=== PATIENT | female | born 1935 | race Caucasian/White ===

== ENCOUNTER 2021-02-18 00:49 | Emergency (ER) | payer MEDICARE, BC ==
[~2021-02-18] VITALS: Ht 165.1 cm; Wt 54.4 kg
[2021-02-18] MEDS ORDERED: MEGE400O5 PO (01:02)
[2021-02-18] MEDS ORDERED: QUET25TA PO (01:02)
[2021-02-18] MEDS ORDERED: QUET50TA PO (01:02)
[2021-02-18] MEDS ORDERED: ERGO500040 PO (01:02)
[2021-02-18] MEDS ORDERED: MELA3TAB41 PO (01:02)
[2021-02-18 02:38] LABS: HEMATOCRIT 35.8 % (31.2-41.9); MEAN CORPUSCULAR HEMOGLOBIN 33.2 uug (24.7-32.8); MEAN CORPUSCULAR VOLUME 99.8 fL (75.5-95.3); PLATELET COUNT (AUTO) 245 K/uL (179-408)
[2021-02-18 02:43] LABS: POTASSIUM 4.3 mmol/L (3.5-5.1)
[2021-02-18 02:56] LABS: BILIRUBIN,DIRECT 0.2 mg/dL (0.0-0.2); BILIRUBIN,TOTAL 0.6 mg/dL (0.2-1.0); TOTAL PROTEIN, SERUM 7.3 g/dL (6.4-8.2)
--- NOTE | 2021-02-18 07:30 | NUR ---
Received lg barbosa shift report
--- NOTE | 2021-02-18 07:45 | NUR ---
Patient discharged to home in stable condition. Patient wheeled via wheelchair. Written and verbal after care instructions given. Patient verbalizes understanding of instructions. Stressed follow up or return to ER for worsening s/s.
[2021-02-18 08:07] VITALS: BP 140/92
== END 2021-02-18 07:45 ==
LOC: ER 00:52
DX: S20.219A Contusion of unspecified front wall of thorax, initial encounter (principal); W05.0XXA Fall from non-moving wheelchair, initial encounter; Y92.099 Unspecified place in other non-institutional residence as the place of occurrence of the external cause; F03.90 Unspecified dementia, unspecified severity, without behavioral disturbance, psychotic disturbance, mood disturbance, and anxiety; R94.31 Abnormal electrocardiogram [ECG] [EKG]
CPT/HCPCS: 36415; 70030-TC; 71045; 71120; 85025; 93005; A4663

== ENCOUNTER 2021-08-12 18:48 | Inpatient (IN) | payer MEDICARE, BC ==
[~2021-08-12] VITALS: Ht 167.6 cm; Wt 58.5 kg
[~2021-08-12 18:48] MED LIST: ERGO500040 PO; MEGE400O5 PO; MELA3TAB41 PO; QUET25TA PO; QUET50TA PO
--- NOTE | 2021-08-12 19:11 | NUR ---
Dr. Darby at bedside for MSE.
[2021-08-12] MEDS ORDERED: ONDANSETRON ODT 4 MG TAB.RAPDIS SL ONE (19:15)
[2021-08-12] MEDS ORDERED: IBUPROFEN 400 MG TABLET PO ONE (19:15)
[2021-08-12] MEDS ORDERED: OXYCODONE/APAP 5-325 MG TABLET PO ONE (19:15)
[2021-08-12] MEDS ORDERED: ONDANSETRON ODT 4 MG TAB.RAPDIS ONE (19:26)
[2021-08-12] MEDS ORDERED: IBUPROFEN 400 MG TABLET ONE (19:27)
[2021-08-12] MEDS ORDERED: OXYCODONE/APAP 5-325 MG TABLET ONE (19:27)
--- NOTE | 2021-08-12 19:58 | NUR ---
Called to maru patient's primary physician, Sabas Grajeda, , spoke with grinding machine operator automatic, to maru funk.
--- NOTE | 2021-08-12 20:30 | NUR ---
applied xerform and kerlix gauze to left elbow skin tear.
[2021-08-12] MEDS ORDERED: FLUT16SP16 BNOSTRILS (20:33)
[2021-08-12] MEDS ORDERED: QUET50TA PO (20:33)
[2021-08-12] MEDS ORDERED: NUTR113P PO (20:33)
--- NOTE | 2021-08-12 21:12 | NUR ---
call to [facility] salesperson meats for panel for admission.
[2021-08-12] MEDS ORDERED: ONDANSETRON 4 MG/2 ML VIAL IV PRN (21:30)
[2021-08-12] MEDS ORDERED: REMEDY ESSENTIAL ZINC PASTE 113 GM TP PRN (21:30)
[2021-08-12] MEDS ORDERED: HYDROCODONE/APAP 10-325 MG TABLET PO ONE (21:30)
[2021-08-12] MEDS ORDERED: MAGNESIUM HYDROXIDE 30 ML LIQUID UDC PO PRN (21:30)
[2021-08-12] MEDS ORDERED: ACETAMINOPHEN 325 MG TABLET PO PRN (21:30)
--- NOTE | 2021-08-12 21:31 | NUR ---
Karuna Webber PRINTING MACHINE MECHANIC called back for admission orders.
[2021-08-12 21:45] LABS: HEMATOCRIT 30.5 % (31.2-41.9); MEAN CORPUSCULAR HEMOGLOBIN 32.4 uug (24.7-32.8); MEAN CORPUSCULAR VOLUME 95.7 fL (75.5-95.3); PLATELET COUNT (AUTO) 224 K/uL (179-408)
[2021-08-12 21:46] LABS: CREATININE 0.9 mg/dL (0.6-1.3); POTASSIUM 3.9 mmol/L (3.5-5.1)
[2021-08-12 21:52] LABS: BILIRUBIN,TOTAL 0.5 mg/dL (0.2-1.0); TOTAL PROTEIN, SERUM 6.5 g/dL (6.4-8.2)
--- NOTE | 2021-08-12 22:02 | NUR ---
pt taken for cat scan of head without contrast.
--- NOTE | 2021-08-12 22:07 | NUR ---
report given to Mattie ALVARADO pt to go to room 306.
--- NOTE | 2021-08-12 22:26 | NUR ---
pt returned from cat scan, unable to do as pt will not sit still. Dr. Darby called Karuna Webber for new orders.
--- NOTE | 2021-08-12 22:28 | NUR ---
norco 10-325 not given as ER ordered dilaudid ivp.
[2021-08-12] MEDS ORDERED: HYDROMORPHONE 1 MG/1 ML DISP.SYRIN IV ONE (22:30)
[2021-08-12] MEDS ORDERED: HALOPERIDOL LACTATE 5 MG/1 ML VIAL IM ONE (22:30)
[2021-08-12] MEDS ORDERED: HYDROMORPHONE 1 MG/1 ML DISP.SYRIN ONE (22:39)
[2021-08-12] MEDS ORDERED: HALOPERIDOL LACTATE 5 MG/1 ML VIAL ONE (22:39)
--- NOTE | 2021-08-12 23:22 | NUR ---
CT HEAD W/O CONTRAST TO BE DONE BY 7AM, PER DR TELLO TO [facility], TO [facility].
--- NOTE | 2021-08-12 23:31 | NUR ---
pt transfered to room 306 via [facility] with all belongings, JENNY Phelps at bedside to receive pt.
[2021-08-12 23:49] VITALS: BP 157/53
[2021-08-13] MEDS: IV NS 1000 ML 1,000 ML IV PRN ×2 (00:07→14:29)
[2021-08-13] MEDS ORDERED: CEFTRIAXONE 1 G VIAL ONE (00:49)
[2021-08-13] MEDS: CEFTRIAXONE 1 G in IV DEXTROSE 5% 50 ML IV SCH ×2 (01:04→20:52)
[2021-08-13 04:06] VITALS: BP 157/59
--- NOTE | 2021-08-13 05:00 | NUR ---
Pt arrived to unit at 2315 via gurney for s/p fall and L humerus fx. Alert and oriented to name. Needs to be reoriented at times. On room air saturating at 96-97%. IV in R forearm running NS at 75 mls. Requested midline. Rocephin abx given. Swallow eval in. Aspiration precautions. Urine sample collected. Orthopedic consult in. Call lights within reach. Safety measures maintained. Will endorse to am shift.
[2021-08-13 07:08] LABS: HEMATOCRIT 27.9 % (31.2-41.9); MEAN CORPUSCULAR HEMOGLOBIN 33.4 uug (24.7-32.8); MEAN CORPUSCULAR VOLUME 95.8 fL (75.5-95.3); PLATELET COUNT (AUTO) 180 K/uL (179-408)
[2021-08-13 07:23] LABS: CREATININE 0.8 mg/dL (0.6-1.3); MAGNESIUM 2.1 mg/dL (1.8-2.4); POTASSIUM 4.4 mmol/L (3.5-5.1)
--- NOTE | 2021-08-13 07:30 | NUR ---
RECEIVED PATIENT IN BED AWAKE BUT IS CONFUSED AND DISORIENTED ALL NEEDS ANTICIPATED AND SATISFIED ON ROOM AIR WITH NO SHORTNESS OF BREATH AT THIS [id number] ARM IS ON THE SLING WITH ADEQUATE CIRCULATION AT THIS TIME INCONTINENT CARE DONE IVF IN PROGRESS ORDERED BED ALARM IS IN USE MADE COMFORTABLE WILL CONTINUE TO OBSERVE.
--- NOTE | 2021-08-13 08:30 | NUR ---
SEEN BY TASSEL MAKING MACHINE OPERATOR DR PAYNE AND HE STATED THAT PATIENT WILL NEED AN ECHO BECAUSE HE HAS HEART MURMUR THE ECHO WILL NEED TO BE READ BEFORE SHE GOES FOR SURGERY ASSUMING SHE NEEDS TO HAVE SURGERY AND NOTED.
[2021-08-13] MEDS ORDERED: ERGOCALCIFEROL 50,000 UNIT CAPSULE PO SCH (09:00)
[2021-08-13] MEDS: ENSURE ENLIVE (VAN) 240 ML LIQUID PO SCH ×3 (09:00→17:00)
[2021-08-13] MEDS: MEGESTROL ACETATE 400 MG/10 ML LIQUID UDC PO SCH (09:02)
[2021-08-13] MEDS: FLUTICASONE PROP NASAL SPRAY 16 GM BOTTLE NS SCH (09:02)
[2021-08-13 09:07] LABS: *BILIRUBIN,URIN NEGATIVE (NEGATIVE); *CLARITY,URINE CLEAR (CLEAR); *COLOR,URINE YELLOW (YELLOW); *KETONES,URINE NEGATIVE (NEGATIVE); LEUKOCYTE ESTERASE ,URINE NEGATIVE (NEGATIVE); NITRITE, URINE NEGATIVE (NEGATIVE); UGLUCOSE NEGATIVE (NEGATIVE)
[2021-08-13 09:08] LABS: *BLOOD, URINE TRACE (NEGATIVE)
--- NOTE | 2021-08-13 09:08 | NUR ---
PATIENT IS CONFUSED DISORIENTED ST EVALUATION HERE TO SEE PATIENT SHE IS NOT COOPERATIVE REFUSED TO EAT REFUSED HER ENSURE NEEDING CONSTANT REDIRECTION FOR SAFETY WILL OBSERVE.
--- NOTE | 2021-08-13 11:25 | NUR ---
DR BLOCK HERE SEEN PATIENT WITH NO NEW ORDERS AT THIS TIME
[2021-08-13 11:52] LABS: BACTERIA,URINE NONE SEEN /HPF (NONE SEEN); SQUAMOUS EPITHELIAL CELL,UR FEW /HPF (NONE SEEN); WBC,URINE 0-3 /HPF (0-3)
[2021-08-13 12:27] VITALS: BP 104/45
--- NOTE | 2021-08-13 13:07 | NUR ---
ECHO COMPLETED ORDERED WITH 60 PERCENT EF WITH MODERATE TO SEVERE STENOSIS PATIENT REMAINS CONFUSED NEEDING FREQUENT REDIRECTION LEFT ARM SLING REPOSITIONED MADE COMFORTABLE WILL CONTINUE TO OBSERVE.
--- NOTE | 2021-08-13 15:00 | NUR ---
PATIENT IS VERY AGITATED VERY CONFUSSED DISORIENTED GETTING OUT OF BED UNATTENDED AT RISK FOR FALL HAS POOR SAFETY AWARENESS PATIENT PLACED ON THE KHOI/CHAIR MADE COMFORTABLE.
[2021-08-13 16:23] VITALS: BP 168/73
[2021-08-13] MEDS: MELATONIN 3 MG TABLET PO SCH (17:43)
--- NOTE | 2021-08-13 18:00 | NUR ---
REMAIN CONFUSED WITH IVF ORDERED MADE COMFORTABLE APPETITE REMAINS POOR.
[2021-08-13 20:00] VITALS: BP 165/83
[2021-08-13] MEDS: HYDROCODONE/APAP 10-325 MG TABLET PO PRN (21:14)
--- NOTE | 2021-08-13 22:05 | NUR ---
Patient awake, response to name, with facial grimacy, when ask if she has pain, she answer yes, Patient given pain meds po for pain and discomfort, noted with elevated BP probably due pain, Patient has left arm sling in place as ordered, cont to monitor.
[2021-08-14] MEDS: HYDROCODONE/APAP 10-325 MG TABLET PO PRN ×3 (03:04→21:45)
--- NOTE | 2021-08-14 03:04 | NUR ---
Patient awake with confusion, with facial grimacy and complaining of pain, given Narco po as ordered, Patient kept clean and dry, frequent visual check done. Patient has episode of removing sling, remove ice pack provided for left should swelling, closely monitor.
--- NOTE | 2021-08-14 03:19 | NUR ---
Patient has episode of yelling and calling out Zbigniew, reorient patient, multiple attempts to climbs oob, staff seat in front of patient door to close monitoring.
[2021-08-14 04:00] VITALS: BP 147/54
--- NOTE | 2021-08-14 04:09 | NUR ---
Patient removing slings, clothing, and iv lines, risk for injury. Notify Melanie PROOF MACHINE OPERATOR with order hand mittens. check for placement and circulations.
[2021-08-14 07:18] LABS: MEAN CORPUSCULAR VOLUME 95.4 fL (75.5-95.3); PLATELET COUNT (AUTO) 209 K/uL (179-408)
--- NOTE | 2021-08-14 07:30 | NUR ---
RECEIVED PATIENT IN BED CONFUSED AND DISORIENTED WITH MITTENS ATTEMPTING TO REMOVE MITTENS ALL NEEDS ANTICIPATED AND SATISFIED MAX ASSIST FOR ALL ADL CIRCULATION CHECKED AND MITTENS RELEASED CONTINUE ON IVF WITH NO S/S OF INFILTERATION ON SITE WILL CONTINUE TO OBSERVE.
[2021-08-14 07:58] LABS: CREATININE 0.8 mg/dL (0.6-1.3); POTASSIUM 4.1 mmol/L (3.5-5.1)
[2021-08-14] MEDS: MEGESTROL ACETATE 400 MG/10 ML LIQUID UDC PO SCH (08:27)
[2021-08-14] MEDS: FLUTICASONE PROP NASAL SPRAY 16 GM BOTTLE NS SCH (08:27)
[2021-08-14] MEDS: ENSURE ENLIVE (VAN) 240 ML LIQUID PO SCH ×3 (08:27→17:00)
[2021-08-14] MEDS ORDERED: QUETIAPINE FUMARATE 25 MG TABLET PO PRN ×2 (10:30→18:30)
--- NOTE | 2021-08-14 11:13 | NUR ---
DR MEJIA PSYCH HERE AND SEEN PATIENT WITH NEW ORDERS AND NOTED
[2021-08-14 11:50] VITALS: BP 152/47
[2021-08-14] MEDS: QUETIAPINE FUMARATE 25 MG TABLET PO SCH ×3 (12:46→21:45)
--- NOTE | 2021-08-14 13:50 | NUR ---
PATIENT IS MORE RESTLESS WITH FACIAL GRIMACING MEDICATED WITH NORCO ORDERED REPOSITIONED MADE COMFORTABLE MITTENS REMAIN INTACT PATIENT CONTINUES TO ATTEMPT TO REMOVE MITTEN WILL CONTINUE TO OBSERVE.
[2021-08-14 16:00] VITALS: BP 139/51
[2021-08-14] MEDS: MELATONIN 3 MG TABLET PO SCH (17:30)
[2021-08-14] MEDS ORDERED: QUETIAPINE FUMARATE 25 MG TABLET PO SCH (18:00)
[2021-08-14] MEDS: IV NS 1000 ML 1,000 ML IV PRN (18:12)
[2021-08-14 20:36] VITALS: BP 153/48
[2021-08-14] MEDS: CEFTRIAXONE 1 G in IV DEXTROSE 5% 50 ML IV SCH (21:45)
[2021-08-15 04:40] VITALS: BP 143/51
--- NOTE | 2021-08-15 06:17 | NUR ---
Patient sleept most of the night, given pain meds early part of the shift and it is effective. Patient given also ice for swelling of left arms/shoulder. Patient kept clean dry and comfortable, cont to monitor.
[2021-08-15 06:47] LABS: MEAN CORPUSCULAR HEMOGLOBIN 32.3 uug (24.7-32.8); MEAN CORPUSCULAR VOLUME 96.7 fL (75.5-95.3); PLATELET COUNT (AUTO) 215 K/uL (179-408)
[2021-08-15 07:10] LABS: CREATININE 0.7 mg/dL (0.6-1.3); POTASSIUM 3.8 mmol/L (3.5-5.1)
[2021-08-15] MEDS: IV NS 1000 ML 1,000 ML IV PRN (08:05)
--- NOTE | 2021-08-15 08:08 | NUR ---
Pt is currently sleeping at this time. Fluids changed and running, no signs of acute distress. Pending repeat XRay of shoulder. Plan is to begin discharge planning to assisted facility. Comfort measures provided. Will continue to monitor pt.
[2021-08-15 08:30] VITALS: BP 158/55
--- NOTE | 2021-08-15 09:00 | NUR ---
Pt had temperature of 100.4 F axillary, [id number] Tylenol.
[2021-08-15] MEDS: ENSURE ENLIVE (VAN) 240 ML LIQUID PO SCH ×3 (09:11→16:57)
[2021-08-15] MEDS: QUETIAPINE FUMARATE 25 MG TABLET PO SCH ×4 (09:11→20:07)
[2021-08-15] MEDS: MEGESTROL ACETATE 400 MG/10 ML LIQUID UDC PO SCH (09:12)
[2021-08-15] MEDS: FLUTICASONE PROP NASAL SPRAY 16 GM BOTTLE NS SCH (09:12)
[2021-08-15] MEDS: HYDROCODONE/APAP 10-325 MG TABLET PO PRN ×2 (11:14→19:48)
[2021-08-15] MEDS: GABAPENTIN 100 MG CAPSULE PO SCH ×2 (11:16→16:57)
--- NOTE | 2021-08-15 11:17 | NUR ---
temperature reassessed. 98.5F
[2021-08-15 11:31] VITALS: BP 122/66
[2021-08-15 15:59] VITALS: BP 120/48
[2021-08-15] MEDS: MELATONIN 3 MG TABLET PO SCH (17:00)
--- NOTE | 2021-08-15 19:45 | NUR ---
Notified MD of shoulder Xray results.
[2021-08-15 20:00] VITALS: BP 109/51
--- NOTE | 2021-08-15 20:45 | NUR ---
SPOKE WHEN MARAH NORRIS, AND PER MARAH, PATIENT NEEDS TO BE CLEARED FROM DR. BLOCK AND THEN CAN BE DISCHARGED.
[2021-08-16 04:00] VITALS: BP 128/52
[2021-08-16] MEDS: HYDROCODONE/APAP 10-325 MG TABLET PO PRN ×3 (05:04→20:42)
[2021-08-16] MEDS: ENOXAPARIN SODIUM 30 MG/0.3 ML DISP.SYRIN SUBCUT SCH (08:29)
[2021-08-16] MEDS: GABAPENTIN 100 MG CAPSULE PO SCH ×2 (08:29→17:13)
[2021-08-16] MEDS: MEGESTROL ACETATE 400 MG/10 ML LIQUID UDC PO SCH (08:30)
[2021-08-16] MEDS: ENSURE ENLIVE (VAN) 240 ML LIQUID PO SCH ×3 (08:30→17:12)
[2021-08-16] MEDS: QUETIAPINE FUMARATE 25 MG TABLET PO SCH ×4 (08:30→20:42)
[2021-08-16] MEDS: FLUTICASONE PROP NASAL SPRAY 16 GM BOTTLE NS SCH (08:31)
[2021-08-16 11:53] VITALS: BP 114/35
[2021-08-16] MEDS: IV NS 1000 ML 1,000 ML IV PRN (14:23)
[2021-08-16 15:45] VITALS: BP 137/59
[2021-08-16] MEDS: MELATONIN 3 MG TABLET PO SCH (17:13)
--- NOTE | 2021-08-16 18:21 | NUR ---
Pt needs surgery clearance for discharge planning. Messaged, called, and left message with Dr. Sheth's office. No response yet. Will endorse to president and chief commercial officer.
[2021-08-16 20:00] VITALS: BP 156/67
--- NOTE | 2021-08-16 20:45 | NUR ---
Patient noted to have bilateral mittens.
--- NOTE | 2021-08-16 20:45 | NUR ---
Received patient in bed. Awake, somewhat alert, and confused. Reoriented patient accordingly. Patient appears to be in pain, PRN [place], given as ordered. 0.9% NS running at 75cc/hr via KATTY ML. Due medications crushed, given and tolerated well. Oral care done. Safety precautions initiated. Bed alarm activated, bed in locked position and call light button within reach. Will continue to monitor.
[2021-08-17] MEDS: IV NS 1000 ML 1,000 ML IV PRN ×2 (00:56→18:14)
[2021-08-17] MEDS: HYDROCODONE/APAP 10-325 MG TABLET PO PRN ×3 (03:44→17:18)
[2021-08-17 04:00] VITALS: BP 142/58
--- NOTE | 2021-08-17 05:29 | NUR ---
Patient slept intermittently through the night, with some episodes of moaning and crying due to pain. PRN Hensel given and ice packs were given to reduce pain. Oral care done. IVF NS via KATTY ML, infusing well. Safety precautions maintained. Will endorse to day shift.
--- NOTE | 2021-08-17 07:30 | NUR ---
Awake, confused, anxious, reoriented. Sitter at bedside. Addendum: 08/17/21 at 1334 by VANIA PEREZ RN no sitter. with mittens, monitored per protocol. LUE with splint supported with sling
[2021-08-17] MEDS: FLUTICASONE PROP NASAL SPRAY 16 GM BOTTLE NS SCH (09:23)
[2021-08-17] MEDS: QUETIAPINE FUMARATE 25 MG TABLET PO SCH ×4 (09:24→20:06)
[2021-08-17] MEDS: GABAPENTIN 100 MG CAPSULE PO SCH ×2 (09:24→17:18)
[2021-08-17] MEDS: ENOXAPARIN SODIUM 30 MG/0.3 ML DISP.SYRIN SUBCUT SCH (09:26)
[2021-08-17] MEDS: ENSURE ENLIVE (VAN) 240 ML LIQUID PO SCH ×3 (09:28→17:00)
--- NOTE | 2021-08-17 09:30 | NUR ---
Grimacing, thrashing RUE. Repositioned. [place] po given
[2021-08-17] MEDS: MEGESTROL ACETATE 400 MG/10 ML LIQUID UDC PO SCH (09:32)
--- NOTE | 2021-08-17 10:00 | NUR ---
Assisted out of bed by PT,ambulated in the hallway with FWW then sitting on the gerichair. Addendum: 08/17/21 at 1334 by VANIA PEREZ RN not for this patient
[2021-08-17] MEDS: CEFTRIAXONE 1 G in IV DEXTROSE 5% 50 ML IV SCH (10:34)
[2021-08-17 11:37] VITALS: BP 128/59
--- NOTE | 2021-08-17 12:00 | NUR ---
Screaming, anxious, restless. Assisted to the bathroom. Reoriented. Addendum: 08/17/21 at 1334 by VANIA PEREZ RN not for this patient
[2021-08-17 16:00] VITALS: BP 151/98
[2021-08-17] MEDS: MELATONIN 3 MG TABLET PO SCH (17:18)
--- NOTE | 2021-08-17 17:18 | NUR ---
Grimacing. complaining of pain LUE, [place] po given. Repositioned comfortably in bed
--- NOTE | 2021-08-17 17:20 | NUR ---
Restless and agitated, placed on the wheelchair. Seroquel po given. Addendum: 08/17/21 at 1906 by VANIA PEREZ RN entry not for this patient
--- NOTE | 2021-08-17 19:00 | NUR ---
With discharge order to home. DC instructions prepared. Called son to follow up fruit picker machine operator, will be coming. Endorsed for follow up. Addendum: 08/17/21 at 1905 by VANIA PEREZ RN entry not for this patient
[2021-08-17 20:22] VITALS: BP 168/49
[2021-08-17 21:30] VITALS: BP 148/59
[2021-08-18] MEDS: HYDROCODONE/APAP 10-325 MG TABLET PO PRN ×2 (01:09→20:11)
[2021-08-18 04:42] VITALS: BP 157/59
[2021-08-18] MEDS: QUETIAPINE FUMARATE 25 MG TABLET PO SCH ×4 (08:43→20:11)
[2021-08-18] MEDS: GABAPENTIN 100 MG CAPSULE PO SCH ×2 (08:43→17:17)
[2021-08-18] MEDS: FLUTICASONE PROP NASAL SPRAY 16 GM BOTTLE NS SCH (08:46)
[2021-08-18] MEDS: MEGESTROL ACETATE 400 MG/10 ML LIQUID UDC PO SCH (08:46)
[2021-08-18] MEDS: CEFTRIAXONE 1 G in IV DEXTROSE 5% 50 ML IV SCH (08:51)
[2021-08-18] MEDS: ENOXAPARIN SODIUM 30 MG/0.3 ML DISP.SYRIN SUBCUT SCH (08:54)
[2021-08-18] MEDS: ENSURE ENLIVE (VAN) 240 ML LIQUID PO SCH ×3 (08:55→17:00)
--- NOTE | 2021-08-18 09:42 | NUR ---
PATIENT IN BED REMAINS CONFUSED AND DISORIENTED UNCOOPERATIVE REFUSED HER MEDICATIONS REFUSED TO EAT WAS SEEN BY DR NORRIS AND HE WANTED THE IVF TO BE DISCONTINUED BUT WHEN PATIENT REFUSED TO EAT OR DRINK HE STATED TO RESTART IVF BUT AT THIS TIME TO USE D5NS AND NOTED.
[2021-08-18] MEDS: IV D5/ 0.9% NACL 1,000 ML IV PRN (10:43)
[2021-08-18 12:00] VITALS: BP 137/54
--- NOTE | 2021-08-18 13:19 | NUR ---
PATIENT REFUSED SERROQUEL CRUSHED IN APPLE SAUCE SPIT OUT PLACED IN WATER AND SHE SPIT OUT HITTING MY HAND AWAY WITH HER MITTENS .
[2021-08-18 16:23] VITALS: BP 152/56
[2021-08-18] MEDS: MELATONIN 3 MG TABLET PO SCH (17:16)
--- NOTE | 2021-08-18 18:00 | NUR ---
VERY DIFFICULT GIVING HER MEDICATIONS SHE CONTINUES TO REFUSE SPITING REFUSED HER DINNER SPITS OUT VERY CONFUSED AND DISORIENTED MITTENS INTACT SHE WILL PULL OUT HER MIDLINE CHECKED Q2H FOR CIRCULATION LEFT ARM IN THE SLING ORDERED MADE COMFORTABLE WILL CONTINUE TO OBSERVE.
[2021-08-18 20:06] VITALS: BP 162/70
[2021-08-19 04:06] VITALS: BP_SYST 153; BP_SYST 170; BP_DIAS 63; BP_DIAS 65
[2021-08-19] MEDS: HYDROCODONE/APAP 10-325 MG TABLET PO PRN ×3 (05:30→20:26)
[2021-08-19 06:36] LABS: HEMATOCRIT 24.7 % (31.2-41.9); MEAN CORPUSCULAR HEMOGLOBIN 32.8 uug (24.7-32.8); MEAN CORPUSCULAR VOLUME 95.1 fL (75.5-95.3); PLATELET COUNT (AUTO) 292 K/uL (179-408)
[2021-08-19 07:19] LABS: CREATININE 0.7 mg/dL (0.6-1.3); POTASSIUM 3.2 mmol/L (3.5-5.1)
--- NOTE | 2021-08-19 08:10 | NUR ---
NOTED RIGHT ARM IS SWOLLEN FROM THE WRIST TO THE UPPER ARM DR NORRIS NOTIFIED WITH ORDER TO DO DOPPLER TO RULE OUT DVT AND NOTED.
[2021-08-19] MEDS: ENOXAPARIN SODIUM 30 MG/0.3 ML DISP.SYRIN SUBCUT SCH (08:17)
[2021-08-19] MEDS: CEFTRIAXONE 1 G in IV DEXTROSE 5% 50 ML IV SCH (08:38)
[2021-08-19] MEDS: MEGESTROL ACETATE 400 MG/10 ML LIQUID UDC PO SCH (08:38)
[2021-08-19] MEDS: FLUTICASONE PROP NASAL SPRAY 16 GM BOTTLE NS SCH (08:38)
[2021-08-19] MEDS: ENSURE ENLIVE (VAN) 240 ML LIQUID PO SCH ×3 (08:41→17:00)
[2021-08-19] MEDS: QUETIAPINE FUMARATE 25 MG TABLET PO SCH ×4 (08:48→20:26)
[2021-08-19] MEDS: GABAPENTIN 100 MG CAPSULE PO SCH ×2 (08:48→16:59)
[2021-08-19] MEDS ORDERED: ERGOCALCIFEROL 50,000 UNIT CAPSULE PO SCH (09:00)
[2021-08-19] MEDS: POTASSIUM CHLORIDE 50 ML IV SCH ×4 (09:18→12:23)
--- NOTE | 2021-08-19 11:24 | NUR ---
CALLED RADIOLOGY DEPT RE NO ONE HAS ARRIVED TO DO PATIENTS US OF THE RIGHT UPPER EXT ORDERED SPOKE WITH THE TECH AND HE STATED THAT BECAUSE ITS ROUTINE NO ONE IS HERE TO DO IT SO NOTIFIED AND HAD THE SCHEDULE CHANGED TO STAT.
[2021-08-19 11:51] VITALS: BP 134/58
[2021-08-19 16:00] VITALS: BP 131/49
--- NOTE | 2021-08-19 17:30 | NUR ---
ULTRASOUND OF THE RIGHT UPPER EXTREMITY DONE ORDERED AND THE RESULT SHOWS NO CLOT RIGHT ARM STILL REMAIN SWOLLEN ELEVATED ON THE PILLOW UNABLE TO CONFIRM THE PLACEMENT OF THE MIDLINE SO NEW LINE INSERTED TO HER LEFT HAND AND HER IVF IS INFUSING TO HER LEFT HAND AT THIS TIME.WILL CONTINUE TO OBSERVE.
[2021-08-19] MEDS: MELATONIN 3 MG TABLET PO SCH (17:39)
[2021-08-19] MEDS: IV D5/ 0.9% NACL 1,000 ML IV PRN (17:40)
--- NOTE | 2021-08-19 19:40 | NUR ---
RECEIVED PATIENT SLEEPING IN BED, AROUSED THROUGH LIGHT PAIN. APPEARS DROWSY, WITH FACIAL GRIMACING NOTED, PRN NORCO GIVEN AND TOLERATED WELL. SWELLING NOTED AT RIGHT ARM, HOT PACKS GIVEN TO REDUCE SWELLING. IVF L HAND, 20 GAUGE, RUNNING D5 1/2 NS AT 75 CC/HR. SAFETY PRECAUTIONS INITIATED. BED ALARM ACTIVATED, BED IN LOCKED POSITION AND CALL LIGHT WITHIN REACH.
[2021-08-19 20:00] VITALS: BP 116/53
--- NOTE | 2021-08-19 20:00 | NUR ---
ATTEMPTED TO PUT ON NASAL CANNULA ON D/T POOR OXYGEN SATURATION OF 92%, HOWEVER PATIENT REFUSED.
[2021-08-20 04:00] VITALS: BP 135/46
--- NOTE | 2021-08-20 05:44 | NUR ---
PATIENT SLEPT THROUGH THE NIGHT. ON AND OFF PAIN NOTED. PRN PAIN MEDICATION GIVEN ORDERED. COMPLIANT WITH PO MEDICATIONS. IVF INFUSING WELL. SAFETY PRECAUTIONS MAINTAINED. WILL ENDORSE TO DAY SHIFT.
[2021-08-20] MEDS: HYDROCODONE/APAP 10-325 MG TABLET PO PRN (05:49)
[2021-08-20] MEDS: IV D5/ 0.9% NACL 1,000 ML IV PRN (05:49)
[2021-08-20 06:46] LABS: HEMATOCRIT 24.9 % (31.2-41.9); MEAN CORPUSCULAR HEMOGLOBIN 31.7 uug (24.7-32.8); MEAN CORPUSCULAR VOLUME 94.5 fL (75.5-95.3); PLATELET COUNT (AUTO) 323 K/uL (179-408)
[2021-08-20 06:59] LABS: CREATININE 0.7 mg/dL (0.6-1.3); POTASSIUM 3.7 mmol/L (3.5-5.1)
[2021-08-20] MEDS: QUETIAPINE FUMARATE 25 MG TABLET PO SCH ×3 (08:18→17:51)
[2021-08-20] MEDS: MEGESTROL ACETATE 400 MG/10 ML LIQUID UDC PO SCH (08:18)
[2021-08-20] MEDS: GABAPENTIN 100 MG CAPSULE PO SCH ×2 (08:18→17:51)
[2021-08-20] MEDS: FLUTICASONE PROP NASAL SPRAY 16 GM BOTTLE NS SCH (08:19)
[2021-08-20] MEDS: ENSURE ENLIVE (VAN) 240 ML LIQUID PO SCH ×3 (08:35→17:00)
[2021-08-20] MEDS: ENOXAPARIN SODIUM 30 MG/0.3 ML DISP.SYRIN SUBCUT SCH (08:35)
[2021-08-20] MEDS ORDERED: AMOXICILLIN-CLAVU 250 MG/5 ML SUSPENSION 75 ML BOTTLE PO SCH (09:00)
[2021-08-20 12:07] VITALS: BP 111/45
[2021-08-20 15:23] VITALS: BP 142/73
--- NOTE | 2021-08-20 17:15 | NUR ---
new discharge order, TMS completed. all discharge paperwork completed. patient unable to sign due to cognitive problem.
--- NOTE | 2021-08-20 17:16 | NUR ---
call [facility] to attempt to give report, per johanny she will have demetrius RN return my call so i can give report. explained to johanny patient will be picked up at 1800 and it is important to give report.
[2021-08-20] MEDS: MELATONIN 3 MG TABLET PO SCH (17:51)
--- NOTE | 2021-08-20 18:27 | NUR ---
spoke with anderson report was given all questions answered. right upper arm midline removed, minimal bleeding noted dressing applied, right hand iv removed minimal bleeding noted dressing applied.
--- NOTE | 2021-08-20 18:56 | NUR ---
called [facility] to f/u on ambulance [facility], per dispatch they are running late and will be here in about 30-45 minutes.
--- NOTE | 2021-08-20 20:03 | NUR ---
[facility] ambulance on site. Report given. Patient is alert with baseline confusion. Able to answer some questions. All lines removed. On RA, no SOB. Sling in place to left arm. All belongings taken with patient.
== END 2021-08-20 20:38 | DRG 562 ==
LOC: ER 18:48 → MEDSURG3 21:24
PROVIDERS: ADMIT Nurse Practitioner Acute Care; ATTEND Nurse Practitioner Acute Care
PROC: 2W3BX1Z Immobilization of Left Upper Arm using Splint (ICD-10-PCS; principal; 2021-08-12)
PROC: 05HB33Z Insertion of Infusion Device into Right Basilic Vein, Percutaneous Approach (ICD-10-PCS; 2021-08-13)
DX: S42.292A Other displaced fracture of upper end of left humerus, initial encounter for closed fracture (principal); G92.8 Other toxic encephalopathy; J15.9 Unspecified bacterial pneumonia; E87.1 Hypo-osmolality and hyponatremia; F05 Delirium due to known physiological condition; E44.0 Moderate protein-calorie malnutrition; M62.82 Rhabdomyolysis; Y92.129 Unspecified place in nursing home as the place of occurrence of the external cause; Z20.822 Contact with and (suspected) exposure to COVID-19; E87.6 Hypokalemia; Z68.20 Body mass index [BMI] 20.0-20.9, adult; I35.0 Nonrheumatic aortic (valve) stenosis; F03.90 Unspecified dementia, unspecified severity, without behavioral disturbance, psychotic disturbance, mood disturbance, and anxiety; Z78.1 Physical restraint status; D53.9 Nutritional anemia, unspecified; R55 Syncope and collapse; D72.829 Elevated white blood cell count, unspecified; R62.7 Adult failure to thrive; Z91.81 History of falling; W01.0XXA Fall on same level from slipping, tripping and stumbling without subsequent striking against object, initial encounter
CPT/HCPCS: 36415; 71045; 73020; 73030; 73060; 83735; 84100; 85025; 87040; 87086; 93005; 93307; 97161; A4663; C1758; G0378; J0696; J1170; J1630; J1650; J3480; J3490; J3535; J7030; J7042; J7060; J8999; Q0162